=== PATIENT | female | born 1970 | race Two or more races ===

== ENCOUNTER 2018-03-13 12:13 | Observation (INO) | payer OTHER ==
[~2018-03-13] VITALS: Ht 154.9 cm; Wt 59.0 kg
[2018-03-13] VITALS (12 sets, daily range): BP systolic 93–113; BP diastolic 46–65
[2018-03-13] MEDS ORDERED: SODIUM CHLORIDE FLUSH 10ML SYR IVF ONE (13:00)
[2018-03-13 13:39] LABS: INTERNATIONAL NORMALIZED RATIO 1.01 (0.93-1.1); PROTHROMBIN TIME 10.4 Seconds (9.6-11.5)
[2018-03-13 13:41] LABS: ALBUMIN 3.8 g/dL (3.4-5.0); ANION GAP 7 mmol/L (5-15); CALCIUM 8.3 mg/dL (8.5-10.1); CHLORIDE 111 mmol/L (98-107)
[2018-03-13 13:45] LABS: MEAN CORPUSCULAR HEMOGLOBIN 15.2 pg (27.0-34.8); MEAN CORPUSCULAR VOLUME 52.6 fL (80-100); MEAN PLATELET VOLUME 7.7 fL (7.4-10.4); PLATELET COUNT 301 x10^3/uL (130-400); RED BLOOD COUNT 3.64 x10^6/uL (3.82-5.3); RED CELL DISTRIBUTION WIDTH 21.8 % (9.6-15.2)
[2018-03-13 13:48] LABS: ALANINE AMINOTRANSFERASE 28 U/L (12-78); ALKALINE PHOSPHATASE 98 U/L (45-117); BILIRUBIN,TOTAL 0.4 mg/dL (0.2-1.0); CREATININE 0.52 mg/dL (0.55-1.02); TOTAL PROTEIN 7.6 g/dL (6.4-8.2)
[2018-03-13 13:49] LABS: MEAN CORPUSCULAR HGB CONC 28.9 g/dL (32.4-35.8)
[2018-03-13 14:10] LABS: MD YES
[2018-03-13 14:13] LABS: BAND#(MANUAL) 0.05 x10^3/uL; BANDS%(MANUAL) 1 % (0-7); LYMPH#(MANUAL) 0.43 x10^3/uL (1-3.4); LYMPHS% (MANUAL) 9 % (22-44); MONOS#(MANUAL) 0.29 x10^3/uL (0.3-2.7); MONOS% (MANUAL) 6 % (2-9); SEG#(MANUAL) 4.03 x10^3/uL (1.8-6.8); SEGS% (MANUAL) 84 % (42-75)
[2018-03-13 14:15] LABS: MICROCYTOSIS 1+
[2018-03-13 14:16] LABS: <PLATELET ESTIMATE> ADEQUATE; <PLT MORPHOLOGY> NORMAL PLT MORPH; HYPOCHROMIA 1+; SMUDGE CELLS 1+
[2018-03-13] MEDS ORDERED: ONDANSETRON ODT 4 MG PO PRN (15:30)
[2018-03-13 16:28] LABS: FREE T4 (FREE THYROXINE) 1.19 ng/dL (0.76-1.46); THYROID STIMULATING HORMONE 1.69 mIU/L (0.358-3.740)
[2018-03-13] MEDS ORDERED: ACETAMINOPHEN 325 MG TABLET PO PRN (18:00)
[2018-03-14 02:26] VITALS: BP 97/60
[2018-03-14 06:00] LABS: MEAN CORPUSCULAR HEMOGLOBIN 19.6 pg (27.0-34.8); MEAN CORPUSCULAR VOLUME 63.4 fL (80-100); RED BLOOD COUNT 4.16 x10^6/uL (3.82-5.3); RED CELL DISTRIBUTION WIDTH 35.4 % (9.6-15.2)
[2018-03-14 06:11] LABS: CHLORIDE 112 mmol/L (98-107)
[2018-03-14 06:15] LABS: ANION GAP 7 mmol/L (5-15); CREATININE 0.52 mg/dL (0.55-1.02)
[2018-03-14 06:36] LABS: BASOPHILS # (AUTO) 0.02 x10^3/uL (0-0.1); BASOPHILS % (AUTO) 0 % (0-1); EOSINOPHILS # (AUTO) 0.37 x10^3/uL (0-0.4); EOSINOPHILS % (AUTO) 5 % (1-7); LYMPHOCYTES # (AUTO) 1.08 x10^3/uL (1-3.4); LYMPHOCYTES % (AUTO) 15 % (22-44); MD MORPH REVIEW ONLY; MONOCYTES % (AUTO) 7 % (2-9); NEUTROPHILS # (AUTO) 5.18 x10^3/uL (1.8-6.8); NEUTROPHILS % (AUTO) 73 % (42-75); PLATELET COUNT 228 x10^3/uL (130-400)
[2018-03-14 06:37] LABS: <PLATELET ESTIMATE> ADEQUATE; ANISOCYTOSIS 2+; LARGE PLATELETS 1+
[2018-03-14 06:39] LABS: HYPOCHROMIA 2+; MICROCYTOSIS 2+
[2018-03-14 08:00] VITALS: BP 100/61
[2018-03-14] MEDS ORDERED: IRON SUCROSE COMPLEX 100MG/5ML IV SCH (09:30)
[2018-03-14] MEDS ORDERED: OMEP-110 PO (10:02)
[2018-03-14] MEDS ORDERED: [UNRECOGNIZED DRUG - CODE] PO (10:02)
[2018-03-14] MEDS ORDERED: FERR324T5 PO (10:02)
[2018-03-14 10:42] LABS: FOLATE LEVEL 6.6 ng/mL (3.1-17.5)
== END 2018-03-14 11:08 | disposition home or self-care (01) ==
LOC: ED 13:39 → EDIP 14:36 → INTOOBSV 14:36 → 3NE 15:37 → DCLOUNGE 03-14 11:08
PROVIDERS: ADMIT Internal Medicine; ATTEND Internal Medicine
DX: D50.9 Iron deficiency anemia, unspecified (principal); N92.0 Excessive and frequent menstruation with regular cycle; R00.0 Tachycardia, unspecified; R73.9 Hyperglycemia, unspecified; N83.202 Unspecified ovarian cyst, left side; Z83.3 Family history of diabetes mellitus
CPT/HCPCS: 36415; 36430; 76830; 80048; 80053; 82607; 82728; 82746; 83540; 83550; 84439; 84443; 84466; 84703; 85025; 85610; 85730; 86850; 86900; 86923; 93005; 96374; 99285; G0378; J1756; P9016

== ENCOUNTER → 2018-03-20 | Outpatient (CLI) | payer SELFPAY ==
[~2018-03-20] MED LIST: FERR324T5 PO; OMEP-110 PO; [UNRECOGNIZED DRUG - CODE] PO
[2018-03-20 19:27] LABS: MEAN CORPUSCULAR HEMOGLOBIN 20.9 pg (27.0-34.8); MEAN CORPUSCULAR HGB CONC 31.7 g/dL (32.4-35.8); MEAN PLATELET VOLUME 7.8 fL (7.4-10.4); PLATELET COUNT 187 x10^3/uL (130-400); RED BLOOD COUNT 4.57 x10^6/uL (3.82-5.3); RED CELL DISTRIBUTION WIDTH 40.3 % (9.6-15.2)
[2018-03-20 19:47] LABS: MD MORPH REVIEW ONLY
[2018-03-20 19:48] LABS: ANISOCYTOSIS 2+; HYPOCHROMIA 1+; MICROCYTOSIS 1+
[2018-03-20 19:49] LABS: <PLATELET ESTIMATE> ADEQUATE; <PLT MORPHOLOGY> NORMAL PLT MORPH
[2018-03-20 20:01] LABS: BASOPHILS # (AUTO) 0.04 x10^3/uL (0-0.1); BASOPHILS % (AUTO) 1 % (0-1); EOSINOPHILS # (AUTO) 0.17 x10^3/uL (0-0.4); EOSINOPHILS % (AUTO) 3 % (1-7); LYMPHOCYTES # (AUTO) 1.55 x10^3/uL (1-3.4); LYMPHOCYTES % (AUTO) 26 % (22-44); MONOCYTES # (AUTO) 0.39 x10^3/uL (0.2-0.8); MONOCYTES % (AUTO) 7 % (2-9); NEUTROPHILS # (AUTO) 3.84 x10^3/uL (1.8-6.8); NEUTROPHILS % (AUTO) 64 % (42-75)
== END | disposition home or self-care (01) ==
LOC: LAB 18:59
PROVIDERS: ATTEND Nurse Practitioner
DX: D50.9 Iron deficiency anemia, unspecified (principal); Z83.3 Family history of diabetes mellitus
CPT/HCPCS: 36415; 85025